=== PATIENT | female | born 1990 | race Caucasian/White ===

== ENCOUNTER 2016-12-09 14:39 | Emergency (ER) | payer SELFPAY ==
[~2016-12-09 14:39] MED LIST: DIBUCAINE28.35 GM TP; IBUPROFEN800 M1 PO; PRENATAL VITAM PO; SURFAK240 M2 PO; TYLENOL EXTRA500 M1 PO; TYLENOL WITH C1 EACH PO
[2016-12-09] MEDS ORDERED: NO HOME MEDS (14:47)
[2017-05-21] MEDS ORDERED: AMOXICILLIN875 M1 PO (16:50)
== END 2016-12-09 16:10 ==
LOC: EDMED 14:39
DX: S63.602A Unspecified sprain of left thumb, initial encounter (principal); F17.290 Nicotine dependence, other tobacco product, uncomplicated; W22.8XXA Striking against or struck by other objects, initial encounter; Y92.019 Unspecified place in single-family (private) house as the place of occurrence of the external cause